=== PATIENT | female | born 1970 | race Caucasian/White ===

== ENCOUNTER 2022-05-18 16:36 | Emergency (ER) | payer OTHER, SELFPAY ==
[2022-05-18 16:41] VITALS: BP 128/80; PULSE 68; RESP 18; TEMP 36.1; O2SAT 100
--- NOTE | 2022-05-18 18:59 | ED.EAR ---
HPI - Ear Problem General Chief complaint: Ear Stated complaint: Left ear Time Seen by Provider: 05/18/22 19:04 Source: patient, RN notes reviewed and old records reviewed Mode of arrival: ambulatory Limitations: no limitations History of Present Illness HPI Narrative: 51-year-old female who presents to [facility] with complaints of left ear pain with increased intensity for the past 2 weeks she denies having any sinus drainage has had a history of ear infections in the past. Patient states that she will get a wave feeling in her left ear and then a sharp pain sometimes. Patient reports that she has not taken any OTC medication. MD Complaint: ear pain Location: left ear Treatment prior to arrival: none Related Data Allergies Allergy/AdvReac Type Severity Reaction Status Date / Time No Known Allergies Allergy Verified 05/18/22 17:57 Review of Systems Review of Systems: CONSTITUTIONAL: Denies malaise, chills, sweats, or fever. EYES: Denies visual changes, redness, or discharge. ENT: Reports rhinorrhea, congestion, sinus pain, left otalgia no sore throat. CARDIOVASCULAR: Denies chest pain, palpitations, or edema. RESPIRATORY: Reports cough.? Denies dyspnea. GASTROINTESTINAL: Denies abdominal pain, nausea, vomiting, diarrhea SKIN: Denies rash or itching. MUSCULOSKELETAL: Denies myalgia. NEUROLOGIC: Denies headache. All systems reviewed & are unremarkable except as noted in HPI and below PMFSH Past Medical History Medical History (Updated 05/24/22 @ 20:24 by Michaela Basilio NP) Ear infection Surgical History Surgical History (Updated 05/24/22 @ 20:24 by Michaela Basilio NP) History of tubal ligation Social History Social History (Updated 05/24/22 @ 20:25 by Michaela Basilio NP) Smoking status: Never smoker Alcohol intake: unknown Substance use: never Gender identity (if verbalized by the patient): Female Comments At time of signature, agree with nursing past medical, surgical, social and family history. There is no relevant family history pertinent to the presenting complaint Exam Narrative: GENERAL: Well-appearing, well-nourished, and in no acute distress. HEAD: Normocephalic EYES: PERRLA, conjunctivae clear ENT: Nares clear, turbinates edematous and erythematous, clear discharge. Mucous membranes moist.Left TM red and bulging, Right TM pearly patterson with dull light reflex; no tragal tenderness. Oropharynx erythematous without lesions. Tonsils not enlarged and without exudate, no drooling, no hoarseness, no trismus, uvula midline. NECK: Supple. No lymphadenopathy CHEST: Clear to auscultation, breath sounds equal. No wheezing, rhonchi, rales, or stridor. No respiratory distress, speaks in full sentences.SAO2 100% on room air HEART: Regular rate and rhythm. No murmur heard. SKIN: Warm, dry, no rash. NEURO: Alert and oriented x3. PSYCH: Normal mood and affect Course Course Emergency Course: Patient is aware of diagnosis, understands and agrees to treatment plan.? Anticipatory guidance given.? Patient agrees to follow-up as directed and is aware of reasons to seek care at the emergency department. Portions of this record may have been created with voice recognition software Level of Care: Express Care Visit Vital Signs Vital signs: Vital Signs Temperature 36.1 C L 05/18/22 16:41 Pulse Rate 68 05/18/22 16:41 Respiratory Rate 18 05/18/22 16:41 Blood Pressure 128/80 05/18/22 16:41 Pulse Oximetry 100 05/18/22 16:41 Oxygen Delivery Room Air 05/18/22 16:41 Temperature 36.1 C L 05/18/22 16:41 Pulse Rate 68 05/18/22 16:41 Respiratory Rate 18 05/18/22 16:41 Blood Pressure 128/80 05/18/22 16:41 Pulse Oximetry 100 05/18/22 16:41 Oxygen Delivery Room Air 05/18/22 16:41 Reviewed Medical Decision Making Differential Diagnosis Differential Diagnosis: otitis media, otitis externa, URI, viral syndrome Medical Records Med
== END 2022-05-18 19:15 | disposition home or self-care (01) ==
PROVIDERS: Emergency Provider Registered Nurse; PCP Physician Assistant
DX: H66.92 Otitis media, unspecified, left ear (principal)
CPT/HCPCS: 99213; G0463